=== PATIENT | female | born 1945 | race Two or more races ===

== ENCOUNTER 2017-05-08 10:33 | Emergency (ER) | payer OTHER ==
[~2017-05-08] VITALS: Ht 165.1 cm; Wt 106.6 kg
[~2017-05-08 10:33] MED LIST: ATORVASTATIN CA20 MG; LOSARTAN POTAS100 MG; METFORMIN HCL1000 MG PO; NORVASC10 MG; SERTRALINE HCL100 MG; SINGULAIR 10MG10 MG; TOPROL XL50 M1
[2017-05-08] MEDS ORDERED: CARVEDILOL12.5 MG PO (11:03)
[2017-05-08] MEDS ORDERED: FENOFIBRATE145 MG PO (11:04)
[2017-05-08] MEDS ORDERED: COZAAR50 MG PO (11:05)
[2017-05-08] MEDS ORDERED: METFORMIN HCL850 MG PO (11:05)
[2017-05-08] MEDS ORDERED: ACID REDUCER 1150 MG PO (11:06)
== END 2017-05-08 14:16 | disposition home or self-care (01) ==
LOC: ER 10:33
DX: G51.0 Bell's palsy (principal)